=== PATIENT | male | born 1950 | race Asian ===

== ENCOUNTER 2018-01-01 20:03 | Emergency (ER) | payer OTHER ==
[~2018-01-01] VITALS: Ht 185.4 cm; Wt 77.1 kg
[2018-01-01 20:03] VITALS: BP_SYST 98
[2018-01-01] MEDS ORDERED: NACL 0.9% 1,000 ML IV ONE (20:14)
[2018-01-01] MEDS ORDERED: ASPIRIN 81 MG TAB.CHEW PO ONE (20:15)
[2018-01-01] MEDS ORDERED: NITROGLYCERIN 1 INCH (GM) OINT. TP ONE (20:15)
[2018-01-01] MEDS ORDERED: PANTOPRAZOLE SODIUM 40 MG/VIAL (PROTONIX) IVP ONE (20:30)
[2018-01-01 20:35] LABS: BASOPHILS # (AUTO) 0.2 K/uL (0.0-0.2); BASOPHILS % (AUTO) 1.9 % (0.0-2.0); EOSINOPHILS # (AUTO) 0.3 K/uL (0.0-0.4); EOSINOPHILS % (AUTO) 3.6 % (0.0-4.0); HEMATOCRIT 41.9 % (36-54); HEMOGLOBIN 14.3 g/dL (14.0-18.0); LYMPHOCYTES # (AUTO) 2.5 K/uL (1.0-5.5); MEAN CORPUSCULAR HEMOGLOBIN 32 pg (27-31); MEAN CORPUSCULAR HGB CONC 34 % (32-36); MEAN CORPUSCULAR VOLUME 94 fL (79.0-98.0); MONOCYTES # (AUTO) 0.9 K/uL (0.0-1.0); MONOCYTES % (AUTO) 10.8 % (1.7-9.3); NEUTROPHILS # (AUTO) 4.8 K/uL (1.8-7.7); NEUTROPHILS % (AUTO) 54.7 % (40.0-70.0); PLATELET COUNT (AUTO) 268 K/uL (130-430); RED BLOOD CELL COUNT(AUTO) 4.45 MIL/uL (4.2-6.2); RED CELL DISTRIBUTION WIDTH 12.5 % (9.0-15.0); WHITE BLOOD COUNT (AUTO) 8.7 K/uL (4.8-10.8)
[2018-01-01 20:45] VITALS: BP_SYST 124
[2018-01-01 21:21] LABS: ALANINE AMINOTRANSFERASE 28 U/L (12-78); ALBUMIN 3.7 g/dL (3.4-4.8); ANION GAP 12 (5-15); ASPARTATE AMINOTRANSFERASE 24 U/L (10-37); CALCIUM 10.1 mg/dL (8.4-11.0); CHLORIDE 104 mmol/L (98-107); CREATININE 1.32 mg/dL (0.55-1.30); GLUCOSE 151 mg/dL (70-99); INR 0.9 (0.80-1.20); POTASSIUM 3.6 mmol/L (3.5-5.1); PROTHROMBIN TIME 9.6 SECS (9.5-12.5); SODIUM SERUM 139 mmol/L (136-145); TOTAL BILIRUBIN 0.3 mg/dL (0.0-1.0); UREA NITROGEN, BLOOD 27 mg/dL (8-21)
[2018-01-01 21:23] LABS: GFR AFRICAN AMERICAN 70 mL/min (>90)
== END 2018-01-01 20:45 | disposition short-term general hospital (02) ==
LOC: SED 20:03
DX: I21.9 Acute myocardial infarction, unspecified (principal); I10 Essential (primary) hypertension
CPT/HCPCS: 36415; 71045; 80053; 84484; 85025; 85379; 85610; 85730; 93005; 96365; 99291; C9113; J7030